=== PATIENT | male | born 1950 | race Caucasian/White ===

== ENCOUNTER 2018-06-02 13:14 | Emergency (ER) | payer OTHER ==
[~2018-06-02] VITALS: Ht 180.3 cm; Wt 127.5 kg
--- NOTE | 2018-06-02 13:14 | NUR ---
BROUGHT BACK TO BED #7 AND TRIAGED. REPORT GIVEN TO JAIME
[2018-06-02 13:15] VITALS: BP_SYST 160
--- NOTE | 2018-06-02 13:30 | NUR ---
Pt presents to ER c/o dizziness, sore throat 5/10 on pain scale, congestion. Pt denies chest pain or sob at this time. Pt AOX4, speaking full sentences, no signs of acute distress.
--- NOTE | 2018-06-02 13:40 | NUR ---
Osbaldo COSTA at bedside examining pt.
[2018-06-02 14:20] VITALS: BP_SYST 160
--- NOTE | 2018-06-02 14:20 | NUR ---
Patient given written and verbal discharge instructions and verbalizes understanding. ER MD discussed with patient the results and treatment provided. Patient in stable condition. ID arm band removed. Rx of Flonase, Promethazine, Meclizine given. Patient educated on pain management and to follow up with PMD. Pain Scale 0/10. Opportunity for questions provided and answered. Medication side effect fact sheet provided.
--- NOTE | 2018-06-02 14:37 | NUR ---
Note undone in EDM - 06/02/18 at 1438 by [email or web address] Patient given written and verbal discharge instructions and verbalizes understanding. ER discussed with patient the results and treatment provided. Patient in stable condition. ID arm band removed. Rx of Flonase, Promethazine, Meclizine given. Patient educated on pain management and to follow up with PMD. Pain Scale 0/10. Opportunity for questions provided and answered. Medication side effect fact sheet provided.
== END 2018-06-02 14:20 | disposition home or self-care (01) ==
LOC: SED 13:14
DX: H81.10 Benign paroxysmal vertigo, unspecified ear (principal); N39.0 Urinary tract infection, site not specified
CPT/HCPCS: 99283